=== PATIENT | male | born 1980 | race Caucasian/White ===

== ENCOUNTER 2021-07-19 09:00 | Emergency (ER) | payer OTHER, SELFPAY ==
[2021-07-19 09:01] VITALS: BP 165/103; PULSE 70; RESP 16; TEMP 36.9; O2SAT 98; BMI 34.2
--- NOTE | 2021-07-19 09:11 | XR_ITS ---
PROCEDURE INFORMATION: Exam: XR Right Shoulder Exam date and time: 07/19/2021 9:11 AM Age: 40 years old Clinical indication: Patient HX: PT fell 4 days ago, right shoulder pain; Unable to fully raise or rotate arm TECHNIQUE: Imaging protocol: XR Right shoulder. Views: 2 or more views. COMPARISON: No relevant prior studies available. FINDINGS: Bones/joints: No acute fracture or malalignment. Moderate acromioclavicular joint degenerative changes with subacromial spurring. Mild glenohumeral joint degenerative change. Soft tissues: Normal. IMPRESSION: No acute fracture or malalignment.
--- NOTE | 2021-07-19 09:11 | XR_ITS ---
PROCEDURE INFORMATION: Exam: XR Right Humerus Exam date and time: 07/19/2021 9:11 AM Age: 40 years old Clinical indication: Patient HX: PT fell 4 days ago; Right shoulder pain; Unable to fully raise or rotate arm TECHNIQUE: Imaging protocol: XR Right humerus. Views: 2 or more views. COMPARISON: CR XR SHOULDER RT MIN 2V 07/19/2021 9:20 AM FINDINGS: Bones/joints: No acute fracture or malalignment. Soft tissues: Normal. IMPRESSION: No acute fracture or malalignment.
--- NOTE | 2021-07-19 09:40 | HMH.EDGENADL ---
ED Disposition Clinical Impression: Rotator cuff dysfunction Qualifiers: Laterality: right Qualified Code(s): M67.911 - Unspecified disorder of synovium and tendon, right shoulder Disposition: Home, Self-Care Condition on Discharge: Good Instructions: DI for Shoulder Sprain Prescriptions: Ibuprofen [Ibuprofen 800mg Tablet] 800 mg PO TIDP PRN #20 tab PRN Reason: Moderate Pain Prescription Printed Referrals: Provider,MD Aldo [Primary Care Provider] - Dejon France MD [Staff Physician] - - Critical Care Critical Care Time: No Attestation: On 07/19/21, the high probability of a clinically significant, sudden or life threatening deterioration of the following system(s) required my full and direct attention, intervention and personal management. The time I documented below is in addition to time spent performing reported procedures but includes the following listed in this critical care notation. Medical Decision Making - Medical Records Medical records reviewed: Yes: I reviewed the patient's medical records. - Félix Inquiry Pt receiving controlled substance: No Vital Signs: 07/19/21 09:01 Temperature 98.4 F Temperature Source Oral Pulse Rate [Radial] 70 Respiratory Rate 16 Blood Pressure [Right Arm] 165/103 H Blood Pressure Mean [Right Arm] 123 Blood Pressure Position [Right Arm] Sitting 02 Sat by Pulse Oximetry 98 Oxygen Delivery Method Room Air - Radiology Data #1 Image(s): Shoulder, Other (humerus) Image Reviewed: Yes I reviewed the patient's radiology results, Yes I reviewed the patient's radiology image, Yes I have reviewed radiologist's interpretation Preliminary Findings: Normal/NAD, No Fracture Seen - Reevaluation(s) Time: 10:48 Reevaluation #1: No evidence of fracture or dislocation on imaging studies. Repeat examination of the compartments does not show any evidence of compartment syndrome. Range of motion appears to be slightly improving. I do believe patient symptoms are consistent with rotator cuff strain. Patient will follow up with orthopedic surgery. Strict return precautions. Verbalized understanding. Medical Decision Narrative: 40-year-old male presenting with some right shoulder pain for 5 days. Concern for possible fracture dislocation. Patient is actually declining analgesics at this time. Imaging obtained. General Adult HPI - General Chief complaint: PAIN Stated complaint: AO [id number] right shoulder pain, home accident Time Seen by Provider: 07/19/21 09:10 Mode of Arrival: Ambulatory Limitations: No Limitations Description of Symptoms (Recalled from ER Triage Doc. by RN): to ed per pvt car with c/o rt shoulder pain states weds fell landing on rt shoulder pain getting worse - History of Present Illness HPI narrative: 40-year-old male presented to the emergency department with some right shoulder pain. The patient states that he fell over his stump 5 days ago. Since then he has been having some discomfort in his right upper arm and shoulder. States that the pain is dull in nature. Constant. Nonradiating. Is worse when he tries to move the shoulder. He does complain of some limited range of motion lifting it up to the side secondary to the pain. Patient did not sustain any other injuries. Denies any chest pain or shortness of breath. Abdominal pain or vomiting. No headache or change in vision. No focal weakness. - Related Data Previous Rx's Medication Instructions Recorded Ibuprofen [Ibuprofen 800mg 800 mg PO TIDP PRN #20 tab 07/19/21 Tablet] Allergies Allergy/AdvReac Type Severity Reaction Status Date / Time No Known Allergies Allergy Verified 07/19/21 09:[address] [facility] History - Hepatitis A Screen Drug use history?: No High risk sexual behaviors?: No History of sexually transmitted infection?: No Currently employed?: No Childcare worker?: No Do you have indoor plumbing?: Yes Do you have electricity?: Yes [place]
[2021-07-19 11:09] VITALS: BP 143/89; PULSE 78; RESP 16; TEMP 36.6; O2SAT 98
== END 2021-07-19 11:10 | disposition home or self-care (01) ==
PROVIDERS: Emergency Provider Emergency Medicine
DX: M67.911 Unspecified disorder of synovium and tendon, right shoulder (principal); W18.39XA Other fall on same level, initial encounter; Y92.73 Farm field as the place of occurrence of the external cause
CPT/HCPCS: 73030; 73060; 99282

== ENCOUNTER → 2021-11-25 08:36 | Outpatient (CLI) | payer OTHER, SELFPAY ==
--- NOTE | 2021-11-25 08:40 | XR_ITS ---
FINAL REPORT CLINICAL HISTORY: rt shoulder pain FINDINGS: RIGHT SHOULDER Four views demonstrate no acute fracture or dislocation. There is mild acromioclavicular and glenohumeral joint degenerative change. The visualized bony structures are well aligned. No soft tissue abnormality is seen. IMPRESSION: Mild degenerative changes. Reviewed, Interpreted and Dictated by Lazarus Figueroa III, MD Transcribed by Maddie Helm Authenticated by Lazarus Figueroa III, MD on 11/25/2021 10:39:20 AM [facility]
== END ==
PROVIDERS: PCP Family Medicine; Visit Provider Orthopaedic Surgery
DX: M67.911 Unspecified disorder of synovium and tendon, right shoulder (principal)
CPT/HCPCS: 73030

== ENCOUNTER → 2021-12-01 14:54 | Outpatient (CLI) | payer OTHER, SELFPAY ==
--- NOTE | 2021-12-01 14:54 | MR_ITS ---
FINAL REPORT CLINICAL HISTORY: shoulder pain. limited rom. weakness in arm. limited rom. pt fell on shoulder and heard a pop [id number] ago. FINDINGS: Multi planar MR imaging of the right shoulder was performed. There is complete disruption with proximal retraction of the supraspinatus tendon. There is approximately 4 cm of retraction. There is superior subluxation of the humeral head. There is narrowing of the subacromial space. There is an abnormal appearance to the subscapularis tendon with heterogeneous increased signal and disrupted fibers probably due to chronic partial tear. There is no abnormal fluid in the subacromial/subdeltoid bursa. The anterior and posterior glenoid genaro appear intact. The biceps tendon appears intact. There are moderate hypertrophic changes involving the AC joint. IMPRESSION: Complete disruption with proximal retraction of the supraspinatus tendon. 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 Reviewed, Interpreted and Dictated by Paulino Hickman MD Transcribed by Sandeep Khalil Authenticated by Paulino Hickman MD on 12/01/2021 04:17:49 PM [facility][1]
== END ==
PROVIDERS: PCP Family Medicine; Visit Provider Orthopaedic Surgery
DX: M67.911 Unspecified disorder of synovium and tendon, right shoulder (principal)
CPT/HCPCS: 73221

== ENCOUNTER 2024-12-11 16:10 | Outpatient (CLI) | payer OTHER, SELFPAY ==
[2024-12-11 14:00] LABS: Basophils # 0.1 K/mm3 (0-0.2); Basophils % 1.5 % (0.1-2.0); Eosinophils # 0.2 K/mm3 (0.0-0.4); Eosinophils % 2.6 % (0.1-12.0); Hematocrit 45.8 % (42.0-52.0); Hemoglobin 15.2 g/dL (14.1-18.0); Lymphocytes # 2.4 K/mm3 (0.7-4.5); Lymphocytes % 30.1 % (10-50); Mean Corpuscular HGB Conc 33.2 g/dL (31.8-35.4); Mean Corpuscular Hemoglobin 28.9 pg (27.0-31.2); Mean Corpuscular Volume 87.1 fl (80-94); Mean Platelet Volume 9.4 fl (7.4-10.4); Monocytes # 0.7 K/mm3 (0.1-1.0); Monocytes % 8.1 % (1.7-9.3); Neutrophils # 4.6 K/mm3 (1.8-7.8); Neutrophils % 57.2 % (37.0-80.0); Platelet Count 337 K/mm3 (142-424); Red Blood Count 5.26 M/mm3 (4.60-6.20); Red Cell Distribution Width 12.8 % (11.5-17.5); White Blood Count 8.1 K/mm3 (4.8-10.8)
[2024-12-11 14:54] LABS: Albumin Level 5.1 g/dl (3.5-5.0); Chloride 101 mmol/L (98-107); Potassium 5.3 mmoL/L (3.5-5.1); Sodium 138 mmol/L (136-145)
[2024-12-11 14:57] LABS: Alanine Aminotransferase 37 U/L (12-78); Albumin/Globulin Ratio 2.3 (1.1-1.8); Alkaline Phosphatase 62 U/L (38-126); Anion Gap 14.3 mEq/L (5-15); Aspartate Amino Transferase 32 U/L (17-59); Bilirubin,Total 0.5 mg/dl (0.2-1.3); Blood Urea Nitrogen 14 mg/dl (9-20); Calcium 9.6 mg/dl (8.4-10.2); Carbon Dioxide 28 mmol/L (22.0-30.0); Cholesterol 216 mg/dl (140-200); Estimated Glomerular Filt Rate 80 ml/min (>60); GFR (African American) 97 ML/MIN (>60); Globulin 2.2 g/dL (1.3-3.2); Glucose 92 mg/dl (74-100); Total Protein,Serum 7.3 g/dl (6.3-8.2); Triglycerides 112 mg/dl (30-150); VLDL Cholesterol 22 mg/dL (0-40)
[2024-12-11 14:58] LABS: Chol/HDL Ratio 4.4 (1-3.5); HDL Cholesterol 49 mg/dl (40-60)
[2024-12-11 15:08] LABS: Direct LDL Cholesterol 133.78 mg/dL (100-129)
[2024-12-11 15:15] LABS: Free T4 (Free Thyroxine) 1.11 ng/dl (0.78-2.19)
[2024-12-11 15:18] LABS: Hemoglobin A1C 5.6 % (4.0-6.0)
[2024-12-11 15:29] LABS: Thyroid Stimulating Hormone 2.29 uIU/mL (0.465-4.68)
[2024-12-11 15:38] LABS: HIV Combo NEGATIVE (Negative)
[2024-12-11 15:45] LABS: Hepatitis C Ab Qual. W/ RFX NEGATIVE (Negative)
== END 2024-12-11 23:59 | disposition home or self-care (01) ==
LOC: LAB 16:10
PROVIDERS: PCP Internal Medicine; Visit Provider Internal Medicine
DX: Z00.00 Encounter for general adult medical examination without abnormal findings (principal); Z13.29 Encounter for screening for other suspected endocrine disorder; Z11.59 Encounter for screening for other viral diseases; Z11.4 Encounter for screening for human immunodeficiency virus [HIV]; Z13.1 Encounter for screening for diabetes mellitus; Z13.220 Encounter for screening for lipoid disorders
CPT/HCPCS: 80053; 80061; 83036; 84439; 84443; 85025; 86803; 87389

== ENCOUNTER 2024-12-31 12:39 | Outpatient (CLI) | payer OTHER, SELFPAY ==
--- NOTE | 2024-12-31 12:45 | XR_ITS ---
FINAL REPORT CLINICAL HISTORY: right shoulder pain..no trauma COMPARISON: 11/25/2021 FINDINGS: RIGHT SHOULDER 2 views demonstrate no acute fracture or dislocation. The visualized joint spaces are normally aligned. There is been interval development of calcification along the undersurface of the acromion with likely subacromial impingement. The soft tissues are unremarkable. IMPRESSION: No acute process. Reviewed, Interpreted and Dictated by Tiera Doshi MD Transcribed by Yuli Sommers Authenticated and . [facility]
== END 2024-12-31 23:59 | disposition home or self-care (01) ==
LOC: RAD 12:41
PROVIDERS: PCP Internal Medicine; Visit Provider Physician Assistant
DX: M25.511 Pain in right shoulder (principal)
CPT/HCPCS: 73030

== ENCOUNTER 2025-02-11 07:26 | Day surgery (SDC) | payer OTHER, SELFPAY ==
[2025-02-06 14:12] VITALS: BMI 34.9
[2025-02-11] VITALS (7 sets, daily range): BP systolic 104–156; BP diastolic 55–85; PULSE 64–77; RESP 16–18; TEMP 36.1; O2SAT 96–99
[2025-02-11] MEDS: LACTATED RINGERS 1000ML 1,000 ML 50 ML IV (08:11)
--- NOTE | 2025-02-11 08:36 | EXP.ANES.CKL ---
[facility] Disclaimer: The information contained in this section may have been updated after the patient was seen, as this information can be updated by other users. Medical History Seizures Surgical History Hx of sinus surgery History of ankle surgery Family History Mother Cancer Other Family history of myocardial infarction Social History Smoking Status: Never smoker alcohol intake: current alcohol intake frequency: holidays/special occasions only substance use type: marijuana current occupational status: unemployed Travel in the last 8 weeks?: None caffeine: Yes Have you lived/traveled outside [place] in past 30 days?: No Contact w/someone who lives/traveled outside US past 30 days?: No Exposure to someone with infectious disease in past 14 days?: No Do you have a fever (greater than 100.4 F or 38 C)?: No Have you tested positive for COVID-19?: No Exposed to someone with COVID-19 in past 14 days?: No Do you have a sore throat?: No Do you have a cough?: No Do you have any weakness?: No Do you have any diarrhea?: No Are you experiencing any unusual bleeding?: No Do you have any muscle aches/pain?: No Do you have any abdominal pain?: No Are you experiencing loss of taste or smell?: No [facility] Anesthesia Checklist Patient Identification Patient Identification: Arm Band Structural Data Admitted From: Home Planned Operative Procedure/s: Colonoscopy Consent for Planned Operative Procedure(s) Verified: Yes Verified Documents: Surgical Consent and History and Physical NPO Status Verified Time NPO: 00:00 Additional verifications Anesthesia Reactions: No Airway Assessment Mallampati Score:: Class II C-Spine Mobility Assessed: Yes TMJ Mobility Assessed: Yes Dentition: Good Dentition Neurological Assessment Level of Consciousness: Awake, Alert and Appropriate Anesthesia Plan Anesthesia Risk discussed: Yes Anesthesia Plan: Verified ASA Class: II Anesthesia Type: MAC
--- NOTE | 2025-02-11 08:48 | P.HP_ITS ---
History of Present Illness *Admission Date: 02/11/25 *Reason for visit:: High risk screening-family history *History of present illness: Mr. Leija is a 44-year-old gentleman who is here for initial screening colonoscopy. His mother had advanced colon cancer initially diagnosed at age 64. The examination is deemed medically necessary for screening colonoscopy. The patient has been seen, interviewed and examined prior to the procedure by both myself and the anesthesia provider. [facility] Disclaimer: The information contained in this section may have been updated after the patient was seen, as this information can be updated by other users. Medical History (Updated 02/11/25 @ 08:50 by Tres Lynne II, MD) Seizures Surgical History Hx of sinus surgery History of ankle surgery Family History Mother Cancer Other Family history of myocardial infarction Social History Smoking Status: Never smoker alcohol intake: current alcohol intake frequency: holidays/special occasions only substance use type: marijuana current occupational status: unemployed Travel in the last 8 weeks?: None caffeine: Yes Have you lived/traveled outside US in past 30 days?: No Contact w/someone who lives/traveled outside [place] past 30 days?: No Exposure to someone with infectious disease in past 14 days?: No Do you have a fever (greater than 100.4 F or 38 C)?: No Have you tested positive for COVID-19?: No Exposed to someone with COVID-19 in past 14 days?: No Do you have a sore throat?: No Do you have a cough?: No Do you have any weakness?: No Do you have any diarrhea?: No Are you experiencing any unusual bleeding?: No Do you have any muscle aches/pain?: No Do you have any abdominal pain?: No Are you experiencing loss of taste or smell?: No Other Medical History Have you received the Flu Vaccine for this season: No Have you received the Pneumonia Vaccine: No Review of Systems Review of Systems Review of systems (narrative): Negative *Cardiovascular Comments: Negative *Gastrointestinal Comments: Negative *Genitourinary Comments: Negative *Musculoskeletal Comments: Negative *Neurologic Comments: Negative Meds Home Medications and Allergies Home Medications ?Medication ?Instructions ?Recorded ?Confirmed ?Type No Known Home Medications 02/11/25 02/11/25 History New Prescriptions to Start Prescriptions: Allergies Allergy/AdvReac Type Severity Reaction Status Date / Time Sulfa (Sulfonamide Allergy Rash Verified 02/11/25 08:04 Antibiotics) Exam Data for Last 24 hours Vital signs and Labs for Last 24 Hours: Temp Pulse Resp BP Pulse Ox O2 Del Method O2 Flow Rate 97.0 F L 77 17 156/85 H 99 Nasal Cannula 5 02/11/25 08:05 02/11/25 08:05 02/11/25 08:05 02/11/25 08:05 02/11/25 08:05 02/11/25 08:40 02/11/25 08:40 *Routine HEENT Exam Head: Present normocephalic Eye: Present EOMI and PERRL ENT: Present mucous membranes moist *Routine Neck Exam Neck: Present supple *Routine Respiratory Exam Respiratory: Present CTA bilaterally *Routine Cardiovascular Exam Cardiovascular: Present RRR *Routine Abdominal Exam Abdominal: Present soft and normoactive bowel sounds; Absent tenderness *Routine Rectal Exam Rectal:: deferred *Routine Genitalia Exam Genitalia:: deferred *Routine Extremities Exam Extremities: Absent cyanosis, clubbing or edema *Routine Skin Exam Skin: Present warm; Absent rash *Routine Neurological Exam Neurological: Present alert and oriented X3 Assessment and Plan *Assessment and plan (1) Family history of colon cancer in mother: Status: Acute Category: Medical Code(s): Z80.0 - Family history of malignant neoplasm of digestive organs (2) Screening for colon cancer: Status: Acute Category: Medical Code(s): Z12.11 - Encounter for screening for malignant neoplasm of colon Plan A/P: 1. Screening for colon cancer with family history (mother) is the preprocedural diagnosis. The patient will be anesthetized/sedated using MAC sedation. The patient has been seen and examined. Cardiac and lung assessment prior to the examination is stable. Proceed with planned initial screening colonoscopy.
--- NOTE | 2025-02-11 08:50 | HMH.PROCNOTE ---
[facility] Procedure Note Date: 02/11/25 Time: 09:10 Procedure Note:: Colonoscopy Procedure Report: Colonoscopy with snare cautery, cold snare polypectomy and Endo Clip placement Endoscopist: Tres Lynne II, MD Primary care physician: Dennis Lopez DO Date of Procedure: February 11, 2025 Equipment: Olympus 190 variable stiffness pediatric colonoscope Sedation: MAC sedation Indication: Mr. Leija is a 44-year-old gentleman who is here for initial screening colonoscopy. His mother had advanced colon cancer initially diagnosed at the age of 64. The patient reports no abdominal pain, weight loss, change in his bowel habits or rectal bleeding. He did formerly have some hemorrhoidal bleeding and does have occasional gas pains. Procedure: Prior to the procedure, a history and physical exam was performed, and patient's medications and allergies were reviewed. The risks, benefits and alternatives of the sedation and procedure were discussed with the patient. All questions were answered and informed consent was obtained. The patient was brought to the procedure room. Patient identification and proposed procedure were verified by the physician and the nurse. The patient was placed in a left lateral decubitus position and the scope was passed under direct vision. Throughout the procedure, the patient's blood pressure, pulse, and oxygen saturations were monitored continuously. The colonoscopy was accomplished without difficulty. The patient tolerated the procedure well. Findings: On digital rectal examination there was normal rectal tone. There were no external hemorrhoids. The prostate was 2+, smooth, soft, symmetric without nodules. The colonoscope was introduced through the anal canal to the rectum and advanced to the cecum. The ileocecal valve and appendiceal orifice were identified. The scope was advanced a short distance into the ileum which appeared grossly normal. The scope was then withdrawn into the colon. There were 3 polyps (transverse x 1 (4 mm), descending x 1 (4 mm) and pedunculated sigmoid polyp (13 to 14 mm)). The smaller polyps were removed via cold snare polypectomy. The larger sigmoid pedunculated polyp was removed via snare cautery. The polypectomy stalk stump was closed with a single Endo Clip to provide hemostasis. The remaining cecum, ascending, transverse, descending, sigmoid and rectum were grossly normal. There were no other mucosal abnormalities identified. Upon retroflexion within the rectum there were grade 2 internal hemorrhoids. The preparation was excellent throughout with [place] Preparation Score of 9. The cecal time was 14 minutes. Impression: 1. Pedunculated 13 to 14 mm sigmoid polyp 2. 2 additional diminutive colon polyps 3. Grade 2 internal hemorrhoids Plan: I will follow-up the polyp histology and recommend repeat surveillance colonoscopy again in 3 to 5 years based upon the pathology. I would encourage psyllium bulking fiber supplementation on a maintenance basis.
== END 2025-02-11 10:10 | disposition home or self-care (01) ==
PROVIDERS: PCP Internal Medicine; Visit Provider Internal Medicine Gastroenterology
PROC: 0DJD8ZZ Inspection of Lower Intestinal Tract, Via Natural or Artificial Opening Endoscopic (ICD-10-PCS; CPT 45378; principal; 2025-02-11 09:00)
DX: Z12.11 Encounter for screening for malignant neoplasm of colon (principal); Z80.0 Family history of malignant neoplasm of digestive organs; D12.4 Benign neoplasm of descending colon; D12.5 Benign neoplasm of sigmoid colon; D12.3 Benign neoplasm of transverse colon; K64.1 Second degree hemorrhoids
CPT/HCPCS: 45385; J2704; J7120